=== PATIENT | male | born 1955 | race Two or more races ===

== ENCOUNTER → 2024-06-14 | Outpatient (CLI) | payer BC, SELFPAY ==
--- NOTE | 2024-06-14 16:23 | XR_ITS ---
Examination: Hand, right 3 views Technique: Hand AP, oblique, lateral 3 views Date and time of exam: June 04, 2024 1634 hrs. Indications: Injury beginning one month ago, hand pain Findings: Subacute fracture distal aspect proximal phalanx first digit with angulation at the fracture site No foreign body Impression: Subacute fracture partial healing proximal phalanx first digit
--- NOTE | 2024-06-14 16:23 | XR_ITS ---
Examination: Wrist, right 3 views Technique: Wrist AP, oblique, lateral 3 views Date and time of exam: June 14, 2024 1634 hrs. Indications: Injury to the wrist one week ago, wrist pain Findings: No acute fracture. No dislocation Mild narrowing radiocarpal and intercarpal as well as carpometacarpal joints Impression: No acute fracture Mild narrowing joints of the wrist
== END | disposition home or self-care (01) ==
LOC: CDIM 16:13
DX: S62.511A Displaced fracture of proximal phalanx of right thumb, initial encounter for closed fracture (principal); X58.XXXA Exposure to other specified factors, initial encounter; M25.831 Other specified joint disorders, right wrist
CPT/HCPCS: 73110; 73130

== ENCOUNTER 2024-09-26 15:22 | Outpatient (RCR) | payer BC, SELFPAY ==
--- NOTE | 2024-09-26 15:45 | PTNOTE_ITS ---
PT OP Initial Eval Patient Information Outpatient Physical Therapy Treatment Date: 09/26/24 Visit Reasons: pain of RT thumb Medical Diagnosis: M79.641 M79.89 M79.644 [id number] Start of Care: 09/26/24 Date of Onset: May 2024 Smoking Status Smoking Status: Former smoker Tobacco Use: Cigarette Years smoked: 25 Initial Assessment Subjective: Pt is 69 yr old nepali speaking male s/p R thumb phalynx FX in May. Pt reports low to no pain of the thumb and improving ROM. 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 PMH: none reported Imaging: Xray Subacute fracture partial healing proximal phalanx first digit?? 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 He is using the hand for all work and home duties with low to no pain. Pt doesn't need skilled therapy at this time since he doesn't have limitations. Short Term and [facility] Goals Eval and D/C Treatment Plan Eval and D/C Certification Dates: 09/26/24 to 10/25/24 Procedure Charges OP PT Eval Mod Complex 30 minutes: Yes
== END 2024-10-01 23:59 | disposition home or self-care (01) ==
LOC: CPTX 15:22
PROVIDERS: PCP Physician Assistant; Referring Provider Physician Assistant; Visit Provider Physician Assistant
DX: M79.641 Pain in right hand (principal); M79.89 Other specified soft tissue disorders; S62.511D Displaced fracture of proximal phalanx of right thumb, subsequent encounter for fracture with routine healing; X58.XXXD Exposure to other specified factors, subsequent encounter
CPT/HCPCS: 97162